=== PATIENT | male | born 1990 | race Caucasian/White ===

== ENCOUNTER 2020-10-31 17:18 | Emergency (ER) | payer OTHER ==
[~2020-10-31] VITALS: Ht 185.4 cm; Wt 68.2 kg
[2020-10-31 17:48] VITALS: BP 122/60
[2020-10-31] MEDS ORDERED: PENI500T2 PO (17:59)
[2020-10-31] MEDS ORDERED: penicillin V potassium 500mg tablet PO ONE (18:00)
== END 2020-10-31 18:25 | disposition home or self-care (01) ==
LOC: ER 17:20
DX: K05.10 Chronic gingivitis, plaque induced (principal); K04.7 Periapical abscess without sinus; Z88.0 Allergy status to penicillin
CPT/HCPCS: 99283